=== PATIENT | male | born 1955 | race Caucasian/White ===

== ENCOUNTER 2017-01-15 12:46 | Outpatient (CLI) | payer BC ==
[2017-01-15] VITALS (24 sets, daily range): BP systolic 119–173; BP diastolic 55–87; PULSE 55–73; RESP 19–30; TEMP 98–98.4; O2SAT 92–100; Ht 188 cm; Wt 151.6 kg
[~2017-01-15] VITALS: Ht 188 cm; Wt 151.6 kg
[~2017-01-15 12:46] MED LIST: ASPI-623 PO; BUME2TAB17 PO; CLOP75TA13 PO; DOXA2TAB PO; DULO30CA23 PO; INSU100V12 SQ; INSU100V27 SQ; LISI40TA95 PO; MINO10TA PO; NIFE90TA30 PO; NITR0.4T28 SL; NORMAL SALINE 1,000 ML IV ONE; POTA20TA68 PO; SIMV80TA62 PO; TRAM-277 PO; VENL-67 PO; [UNRECOGNIZED DRUG - CODE] PO
--- NOTE | 2017-01-15 12:50 | NUR ---
ADMIT PT AMBULATORY TO ROOM 122. ATTENDING.
[2017-01-15] MEDS ORDERED: CLON0.1T PO (13:21)
[2017-01-15] MEDS ORDERED: POTA-81 PO (13:21)
[2017-01-15] MEDS ORDERED: MULT-933 PO (13:21)
[2017-01-15] MEDS ORDERED: OMEG300C (13:21)
[2017-01-15] MEDS ORDERED: ATOR80TA76 PO (13:21)
--- NOTE | 2017-01-15 13:48 | NUR ---
CM CM IN TO VISIT PATIENT, HE IS A&O. IS AT THE BEDSIDE. PATIENT PLANS TO DISCHARGE HOME, DENIES ANY DISCHARGE NEEDS. CM CONTACT INFORMATION PROVIDED. LACE SCORE IS 3, NO FURTHER FOLLOW UP IS NEEDED. Addendum: 01/15/17 at 1349 by NATALIE CATES RN Amended: Links added.
[2017-01-15 13:51] LABS: BASOPHILS # (AUTO) 0.1 T/MM3 (0-0.2); BASOPHILS % (AUTO) 1.1 % (0-2); EOSINOPHILS # (AUTO) 0.2 T/MM3 (0-0.5); EOSINOPHILS % (AUTO) 4.3 % (0-4); HCT - HEMATOCRIT 37.6 % (41-53); HGB - HEMOGLOBIN 12.5 GM/DL (13.5-17.5); IMMATURE GRANULOCYTE # (AUTO) 0.01 T/MM3 (0.00-0.03); IMMATURE GRANULOCYTE % (AUTO) 0.2 % (0.0-0.5); LYMPHOCYTES # (AUTO) 1.2 T/MM3 (1-4.8); LYMPHOCYTES % (AUTO) 26.3 % (23-45); MEAN CORPUSCULAR HGB 28.7 UUG (26-34); MEAN CORPUSCULAR HGB CONC(MCHC 33.2 GM/DL (31-37); MEAN CORPUSCULAR VOLUME 86.4 UM3 (80-100); MEAN PLATELET VOLUME 9.9 UM3 (9.4-12.4); MONOCYTES # (AUTO) 0.3 T/MM3 (0-0.8); MONOCYTES % (AUTO) 6.2 % (0-9.0); NEUTROPHILS #(AUTO)-ABSOLUTE 2.9 T/MM3 (1.8-7.7); NEUTROPHILS % (AUTO) 61.9 % (33-66); RED BLOOD COUNT 4.35 M/MM3 (4.50-5.90); WBC - WHITE BLOOD COUNT 4.7 T/MM3 (4.5-11.0)
[2017-01-15 14:03] LABS: ANION GAP 14 MEQ/L (5-15); BUN/CREATININE RATIO 14 RATIO (6-26); CALCIUM 9.1 MG/DL (8.4-10.2); CHLORIDE 105 MEQ/L (98-107); CO2 - CARBON DIOXIDE 25 MEQ/L (22-30); CREATININE 1.3 MG/DL (0.8-1.5); GLOMERULAR FILTRATION RATE 56; GLUCOSE 188 MG/DL (75-110); POTASSIUM 4.1 MEQ/L (3.6-5); SODIUM 144 MEQ/L (134-144)
[2017-01-15] MEDS ORDERED: NITROGLYCERIN 50mg/10ml INJECTION IV ONE (14:30)
[2017-01-15] MEDS ORDERED: VERAPAMIL 5mg/2ml INJECTION IV ONE (14:30)
[2017-01-15] MEDS ORDERED: LIDOCAINE 1% (10mg/ml) 30ml SDV ONE (14:43)
[2017-01-15] MEDS ORDERED: HEPARIN 1,000units in NS 500ml BAG IV ONE (14:43)
[2017-01-15] MEDS ORDERED: FENTANYL 100mcg/2ml INJECTION ONE (14:53)
[2017-01-15] MEDS ORDERED: MIDAZOLAM 2mg/2ml INJECTION ONE (14:54)
[2017-01-15] MEDS ORDERED: IOHEXOL 350mg/ml 200ml BOTTLE ONE (15:17)
[2017-01-15] MEDS ORDERED: CLOPIDOGREL 75 MG TABLET ONE (15:21)
[2017-01-15] MEDS ORDERED: LORAZEPAM 0.5 MG TABLET PO PRN (15:45)
[2017-01-15] MEDS ORDERED: MAG-AL + SIM LIQUID 30 ML UDC PO PRN (15:45)
[2017-01-15] MEDS ORDERED: BISACODYL 5 MG E.C. TABLET PO PRN (15:45)
[2017-01-15] MEDS ORDERED: ATROPINE 1 MG/ML VIAL IV PRN (15:45)
[2017-01-15] MEDS ORDERED: HYDROCODONE/APAP 5 mg/325 mg TABLET PO PRN (15:45)
[2017-01-15] MEDS ORDERED: METOCLOPRAMIDE 10mg/2ml INJECTION IV PRN (15:45)
[2017-01-15] MEDS ORDERED: MORPHINE SULFATE 4 MG SYRINGE IV PRN ×2 (15:45)
[2017-01-15] MEDS ORDERED: MILK OF MAGNESIA 30 ML SUSP PO PRN (15:45)
[2017-01-15] MEDS ORDERED: BISACODYL 10 MG SUPPOSITORY RECTALLY PRN (15:45)
[2017-01-15] MEDS ORDERED: PROMETHAZINE 25 MG INJECTION IV PRN (15:45)
[2017-01-15] MEDS ORDERED: ONDANSETRON 4mg/2ml INJECTION IV PRN (15:45)
[2017-01-15] MEDS ORDERED: TRAMADOL 50 MG TABLET PO PRN (15:45)
[2017-01-15] MEDS ORDERED: ACETAMINOPHEN 325 MG TABLET PO PRN (15:45)
[2017-01-15] MEDS ORDERED: LORAZEPAM 2 MG/ML INJECTION IV PRN (15:45)
[2017-01-15] MEDS ORDERED: NITROGLYCERIN 0.4 MG SUBLINGUAL TABLET SL PRN ×2 (15:45)
--- NOTE | 2017-01-15 16:00 | NUR ---
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 The patient is alert and oriented x3. He denies pain/SOA. IV NS is infusing at 75 ml/hr. The electronic device monitor show SR with rate in 60's. The right radial TR band site is intact with reported 16 ml of air inflation.
--- NOTE | 2017-01-15 17:00 | NUR ---
Status: no change in status. The right TR band site is asymptomatic. SR with rate in the 60's continues on the quality assurance monitor.
--- NOTE | 2017-01-15 18:00 | NUR ---
ETCO2: the patient removes the ETCO2. He states he doesn't want this on. ETCO2 monitoring is dc. TR Band: will begin to remove air per the TR band. See post perc. assessment.
[2017-01-15] MEDS: POTASSIUM CHLORIDE 20 MEQ TABLET PO SCH (18:05)
[2017-01-15] MEDS: INSULIN ASPART 100 UNIT/ML SQ SCH (18:06)
[2017-01-15] MEDS: BUMETANIDE 1 MG/4 ML INJECTION IV SCH (21:00)
[2017-01-15] MEDS ORDERED: INSULIN DETEMIR 100 UNIT/ML SQ SCH (21:00)
[2017-01-15] MEDS: LABETALOL 100 MG TABLET PO SCH (21:28)
[2017-01-15] MEDS: CLONIDINE 0.1 MG TABLET PO SCH (21:29)
--- NOTE | 2017-01-15 21:30 | NUR ---
Bumex Pt refuses bumex this pm, states he takes in am and noon. Sonali Sanchez alerted and ok'd by Sonali Sanchez to not give Bumex tonight.
[2017-01-15] MEDS: INSULIN DETEMIR 100 UNIT/ML SQ SCH (21:32)
[2017-01-15] MEDS ORDERED: ATORVASTATIN 40 MG TABLET PO SCH (22:00)
[2017-01-15] MEDS ORDERED: DOXAZOSIN 2 MG TABLET PO SCH (22:00)
[2017-01-15] MEDS ORDERED: MINOXIDIL 2.5 MG TABLET PO SCH (22:00)
--- NOTE | 2017-01-15 23:55 | NUR ---
WALLS Pt c/o 03/25 headache. Pt denies any double vision, unilateral weakness/deficiencies. Pt denies CP. PRN Tylenol offered and pt accepts. Will continue to monitor.
[2017-01-16] VITALS (10 sets, daily range): BP systolic 97–138; BP diastolic 48–63; PULSE 58–65; RESP 17–33; TEMP 97.7–98.5; O2SAT 92–97
--- NOTE | 2017-01-16 00:45 | NUR ---
WALLS reassess Pt states pain medicine has been helping and rates WALLS pain 3/10 at this time.
--- NOTE | 2017-01-16 01:15 | NUR ---
Activity/Pain reassess Pt moves to chair at this time, c/o bed being "uncomfortable". Pt denies any pain at this time.
[2017-01-16 05:28] LABS: BASOPHILS % (AUTO) 0.5 % (0-2); EOSINOPHILS # (AUTO) 0.3 T/MM3 (0-0.5); EOSINOPHILS % (AUTO) 4.8 % (0-4); HCT - HEMATOCRIT 39.2 % (41-53); HGB - HEMOGLOBIN 13.1 GM/DL (13.5-17.5); IMMATURE GRANULOCYTE # (AUTO) 0.03 T/MM3 (0.00-0.03); IMMATURE GRANULOCYTE % (AUTO) 0.5 % (0.0-0.5); LYMPHOCYTES # (AUTO) 1.7 T/MM3 (1-4.8); LYMPHOCYTES % (AUTO) 29.7 % (23-45); MEAN CORPUSCULAR HGB 28.2 UUG (26-34); MEAN CORPUSCULAR HGB CONC(MCHC 33.4 GM/DL (31-37); MEAN CORPUSCULAR VOLUME 84.5 UM3 (80-100); MEAN PLATELET VOLUME 10.4 UM3 (9.4-12.4); MONOCYTES # (AUTO) 0.4 T/MM3 (0-0.8); MONOCYTES % (AUTO) 7.5 % (0-9.0); NEUTROPHILS #(AUTO)-ABSOLUTE 3.2 T/MM3 (1.8-7.7); RED BLOOD COUNT 4.64 M/MM3 (4.50-5.90); WBC - WHITE BLOOD COUNT 5.6 T/MM3 (4.5-11.0)
[2017-01-16 05:38] LABS: ANION GAP 13 MEQ/L (5-15); BUN/CREATININE RATIO 12 RATIO (6-26); CALCIUM 8.9 MG/DL (8.4-10.2); CHLORIDE 108 MEQ/L (98-107); CO2 - CARBON DIOXIDE 22 MEQ/L (22-30); CREATININE 1.3 MG/DL (0.8-1.5); GLOMERULAR FILTRATION RATE 56; GLUCOSE 129 MG/DL (75-110); POTASSIUM 4.2 MEQ/L (3.6-5); SODIUM 143 MEQ/L (134-144)
--- NOTE | 2017-01-16 06:17 | NUR ---
Status Pt slept quite well in chair throughout rest of night. Pt denies pain after Tylenol admin for WALLS. Pt uses part of night (pt own cpap). Pt right wrist dsg is CDI and tissue soft. Ulnar pulse palpable. Pt uses urinal during night. Pt denies SOA and nausea. Will continue to monitor.
[2017-01-16] MEDS: LABETALOL 100 MG TABLET PO SCH (08:39)
[2017-01-16] MEDS: POTASSIUM CHLORIDE 20 MEQ TABLET PO SCH (08:40)
[2017-01-16] MEDS: CLONIDINE 0.1 MG TABLET PO SCH (08:40)
[2017-01-16] MEDS: INSULIN DETEMIR 100 UNIT/ML SQ SCH (08:41)
[2017-01-16] MEDS: BUMETANIDE 1 MG/4 ML INJECTION IV SCH (08:41)
[2017-01-16] MEDS: INSULIN ASPART 100 UNIT/ML SQ SCH (08:42)
[2017-01-16] MEDS ORDERED: DULOXETINE 30 MG CAPSULE PO SCH (09:00)
[2017-01-16] MEDS ORDERED: ASPIRIN *EC* 325mg TABLET PO SCH (09:00)
[2017-01-16] MEDS ORDERED: ASPIRIN *EC* 81mg TABLET PO SCH (09:00)
[2017-01-16] MEDS ORDERED: CLOPIDOGREL 75 MG TABLET PO SCH (09:00)
[2017-01-16] MEDS ORDERED: LISINOPRIL 40 MG TABLET PO SCH (09:00)
--- NOTE | 2017-01-16 09:28 | CVPROF ---
DATE OF PROCEDURE January 15, 2017 The patient is a pleasant 61-year-old gentleman with history of coronary artery disease and abnormal stress test and was referred for further evaluation by cardiac catheterization and possible intervention. Informed consent was obtained after explaining the procedure and the potential risks to the patient who agreed to proceed with the procedure. PROCEDURE 1. Left heart catheterization. 2. Coronary angiography. 3. Left ventriculography. 4. Primary stent of RCA using a 4.0 x 15 drug-eluting Resolute Integrity stent. TECHNIQUE He was prepped and draped in the usual sterile techniques. Conscious sedation was performed using Versed and fentanyl. 1% lidocaine was used for local anesthesia. Using modified Seldinger technique, arterial access was obtained into the right radial artery with placement of a 6-Turkish arterial sheath. 3000 units of heparin, 300 mcg of nitroglycerin, and 2.5 mg of verapamil were given through the arterial sheath. He also received 8000 units of IV heparin prior to intervention. He also received 600 mg of oral Plavix. LEFT VENTRICULOGRAPHY Left ventriculography in single-plane FAGAN shallow projection showed normal LV systolic function with ejection fraction of about 65% with no mitral regurgitation or gradient across the aortic valve. LVEDP was about 33. CORONARY ANGIOGRAPHY Left main was free of significant lesions. Left anterior descending artery had an endovascular stent which was patent with 20% in-stent restenosis. Remaining course of LAD and diagonals were irregular with no significant lesions. Left circumflex artery consisted of a large marginal which had about 80-90% stenosis. Right coronary artery was dominant with 90% ulcerated lesion in mid segment. After reviewing the images we decided to proceed with intervention on RCA. A 6-Turkish Jobzellaari right guide was advanced to the ostium of the right coronary artery. A Runthrough wire was used to cross the lesion into distal RCA. A 4.0 x 15 drug-eluting Resolute Integrity stent was delivered to the lesion site where it was deployed by inflating the balloon to 16 atmospheres. Next, angiogram showed excellent results with no residual stenosis. Distal to the stent there was another 30% stenosis in RCA but did not appear to be hemodynamically significant. The patient tolerated the procedure well with no complications. IMPRESSION 1. Coronary artery disease as described above with high-grade RCA and obtuse marginal stenosis. 2. Normal LV systolic function with ejection fraction of 65%. 3. Elevated LV end-diastolic pressure. 4. Successful primary stent of RCA using a 4.0 x 15 drug-eluting Resolute Integrity stent. PLAN Will keep him on dual antiplatelet therapy at least for year and continue risk modification. One might consider obtuse marginal percutaneous intervention in the future. EMILY
[2017-01-16] MEDS ORDERED: CLOP75TA PO (10:25)
[2017-01-16] MEDS ORDERED: ASPI-1085 PO (10:25)
--- NOTE | 2017-01-16 10:30 | NUR ---
ROSEANNE CM VISITED PT. CM EXPLAINED ROLE AND PROVIDED CONTACT INFORMATION. PT PLANS TO RETURN HOME TODAY. PT DENIES NEEDS. PT IS AWARE TO CONTACT CM IF NEEDS ARISE.
--- NOTE | 2017-01-16 10:45 | NUR ---
Discharge: instructions are reviewed with the patient. The patient verbalizes understanding. Approval for a road trip ([place]) is obtained from Ashley Espino if the patient doesn't drive and gets out of the car q2h and walks. The patient is discharged to home and driven by his . 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
--- NOTE | 2017-01-16 14:31 | NUR ---
DM Screen Diet: CC 1999 events intern attempted to visit with patient x2. Patient d/c without being seen by RD. Will attempt to contact for outpatient counseling. RD available at [phone] Addendum: 01/16/17 at [address] Student charting reviewed by [facility] Director.
[2017-01-17 02:28] LABS: LDL CHOLESTEROL,CALCULATED 69.8 (66-159); RISK FACTOR 3.2 RATIO (0-5.0); VLDL CHOLESTEROL 24.2 MG/DL (0-28)
--- NOTE | 2017-01-17 15:07 | NUR ---
CM CM LVM
--- NOTE | 2017-01-18 14:57 | NUR ---
CM CM LVM
--- NOTE | 2017-01-21 16:25 | NUR ---
CM CM LVM
== END 2017-01-16 11:00 | disposition home or self-care (01) ==
LOC: CATH 12:46 → SRG 12:48 → CCU 15:50 → CATH 01-16 11:00
PROVIDERS: ATTEND Internal Medicine Cardiovascular Disease
DX: I25.10 Atherosclerotic heart disease of native coronary artery without angina pectoris (principal); R94.39 Abnormal result of other cardiovascular function study; I10 Essential (primary) hypertension; F17.210 Nicotine dependence, cigarettes, uncomplicated; E78.2 Mixed hyperlipidemia; E11.9 Type 2 diabetes mellitus without complications; Z95.5 Presence of coronary angioplasty implant and graft; I25.2 Old myocardial infarction; Z79.4 Long term (current) use of insulin; Z79.82 Long term (current) use of aspirin; Z79.899 Other long term (current) drug therapy; Z82.49 Family history of ischemic heart disease and other diseases of the circulatory system
CPT/HCPCS: 36415; 80048; 80061; 85025; 93005; 93458; C1769; C1874; C1887; C1893; C9600; J1644; J1815; J2250; J3010; J3490; J7030; Q9967